=== PATIENT | female | born 1980 | race Caucasian/White ===

== ENCOUNTER 2022-05-01 21:14 | Emergency (ER) | payer SELFPAY ==
[2022-05-01 21:40] LABS: BILIRUBIN,URINE NEGATIVE (NEGATIVE); GLUCOSE, URINE (UA) NEGATIVE (NEGATIVE); KETONES,URINE (UA) NEGATIVE (NEGATIVE); LEUKOCYTE ESTERASE, URINE NEGATIVE (NEGATIVE); NITRITE,URINE NEGATIVE (NEGATIVE); OCCULT BLOOD,URINE LARGE (NEGATIVE); PROTEIN,URINE NEGATIVE (NEGATIVE); UROBILINOGEN,URINE 1 (NORMAL) E.U./dL (NORMAL)
[2022-05-01 21:43] LABS: CLARITY,URINE CLEAR (CLEAR); HCG UR QUAL NEGATIVE
[2022-05-01 21:46] LABS: BASOPHILS # (AUTO) 0.1 10^3/uL (0.0-0.1); BASOPHILS % (AUTO) 0.7 %; EOSINOPHILS # (AUTO) 0.3 10^3/uL (0.0-0.7); HCT - HEMATOCRIT 42.2 % (37.0-47.0); HGB - HEMOGLOBIN 14.2 g/dL (12.0-16.0); LYMPHOCYTES # (AUTO) 2.6 10^3/uL (1.5-3.5); LYMPHOCYTES % (AUTO) 32.6 %; MEAN CORPUSCULAR HEMOGLOBIN 30.3 pg (27.0-31.0); MEAN CORPUSCULAR HGB CONC 33.6 g/dL (32.0-36.0); MEAN CORPUSCULAR VOLUME 90.2 fL (81.0-99.0); MEAN PLATELET VOLUME 10.3 fL (7.9-10.8); MONOCYTES # (AUTO) 0.8 10^3/uL (0.0-1.0); MONOCYTES % (AUTO) 9.7 %; NEUTROPHILS # (AUTO) 4.3 10^3/uL (1.5-6.6); NEUTROPHILS % (AUTO) 52.8 %; PLT - PLATELET COUNT 256 10^3/uL (130-450); RED BLOOD COUNT 4.68 10^6/uL (4.20-5.40); RED CELL DISTRIBUTION WIDTH 11.8 % (12.0-15.0); WHITE BLOOD COUNT 8.1 x10^3/uL (4.8-10.8)
[2022-05-01 21:50] LABS: BACTERIA,URINE Few /HPF (None Seen); SQUAMOUS EPITHELIAL CELL,UR FEW Squamous (<= Few); WBC,URINE 0-3 /HPF (0-5)
[2022-05-01 22:23] LABS: ALBUMIN/GLOBULIN RATIO 1.4 (1.0-2.2); BILIRUBIN,TOTAL 0.9 mg/dL (0.2-1.0); CALCIUM 8.9 mg/dL (8.5-10.3); CREATININE 0.6 mg/dL (0.4-1.0); POTASSIUM 3.6 mmol/L (3.5-5.0); TOTAL PROTEIN 6.9 g/dL (6.7-8.2)
[2022-05-01] MEDS ORDERED: SODIUM CHLORIDE 0.9% 1,000 ML IV STA (22:45)
[2022-05-01] MEDS ORDERED: ONDANSETRON 4 MG/2 ML VIAL IVP STA (22:45)
[2022-05-01] MEDS ORDERED: KETOROLAC 30 MG/ML VIAL IVP STA (22:45)
[2022-05-01] MEDS ORDERED: HYDROmorphone 1 MG/ML CARPUJECT IVP STA (22:45)
[2022-05-01] MEDS ORDERED: iohexoL-300 100 ML VIAL ONE (23:29)
[2022-05-02] MEDS ORDERED: iohexoL-300 100 ML VIAL IVP ONE (00:07)
--- NOTE | 2022-05-02 00:14 | XRAY Report ---
PROCEDURE: Chest 1 View X-Ray INDICATIONS: chest pain TECHNIQUE: One view of the chest was acquired. COMPARISON: None. FINDINGS: Surgical changes and devices: None. Lungs and pleura: No pleural effusions or pneumothorax. Lungs are clear. Mediastinum: Mediastinal contours appear normal. Heart size is normal. Bones and chest wall: No suspicious bony lesions. Overlying soft tissues appear unremarkable. IMPRESSION: 1. No acute cardiopulmonary disease. Reviewed by: Earnest Perez MD on 05/02/2022 12:13 AM [facility] Approved by: Earnest Perez MD on 05/02/2022 12:13 AM [facility] Station ID: [id number]
--- NOTE | 2022-05-02 00:26 | CT Report ---
PROCEDURE: ABDOMEN/PELVIS W INDICATIONS: RUQ abd pain, no US available CONTRAST: 100 ML OMNI 300 TECHNIQUE: After the administration of intravenous contrast, 5 mm thick sections acquired from the diaphragms to the symphysis. 5 mm thick coronal and sagittal reformats were acquired. For radiation dose reducti on, the following was used: automated exposure control, adjustment of mA and/or kV according to shirley ent size. COMPARISON: None. FINDINGS: Image quality: Excellent. Lung bases:There is mild atelectasis and scarring in the lung bases. Heart: Heart is normal in size. ABDOMEN: Liver: No mass lesion. There is minimal fatty infiltration in the anterior left hepatic lobe. Gallbladder: The gallbladder demonstrates mild wall thickening without calcified gallstones or peric holecystic fluid. Biliary ducts: No biliary ductal dilatation. Pancreas: Unremarkable. Spleen: Normal in size. Adrenal Glands: No adrenal nodules. Kidneys and Ureters: No hydronephrosis. Stomach and Bowel: Stomach, small bowel loops, and colon are normal in caliber and wall thickness. T he appendix is normal in appearance. Peritoneum: No abnormal intraperitoneal fluid. No free air. Ventral Wall: No hernia. Abdominal Nodes: No retroperitoneal or mesenteric adenopathy by size criteria. Vessels: Aorta and inferior vena cava are normal in size. PELVIS: Pelvic Organs: There is an IUD within the lower uterine segment with apparent myometrial migration o f the transverse arms. Bladder: Unremarkable. Pelvic Nodes: No enlarged lymph nodes. Miscellaneous: No inguinal hernias. Bones: Visualized osseous structures demonstrate no suspicious lesions. IMPRESSION: 1. Mild gallbladder wall thickening without calcified gallstones or pericholecystic fluid. The findin gs are nonspecific but noncalcified gallstones in the early cholecystitis cannot be excluded. Recomme nd further evaluation with ultrasound when clinically feasible. 2. Apparent myometrial migration of patient's IUD in the lower uterine segment. Reviewed by: Earnest Perez MD on 05/02/2022 12:25 AM PST Approved by: Eranest Perez MD on 05/02/2022 12:25 AM PST Station ID: [id number]
[2022-05-02] MEDS ORDERED: ONDANSETRON ODT 4 MG Prepack 2 TL PRN (01:23)
[2022-05-02] MEDS ORDERED: HYDROcod/ACET 5/325 Prepack 4 PO STA (01:23)
--- NOTE | 2022-05-02 01:28 | ED Physician Documentation ---
History of Present Illness - Stated complaint Stated Complaint: RT UPPER ABD PX - Chief complaint Chief Complaint: Abd Pain - History obtained from History obtained from: Patient - Additonal information Additional information: The patient comes to the emergency department chief complaint of right upper quadrant abdominal pain and nausea for the last couple of days. She states that it seems like it has gotten worse today and so she finally decided to come in. The patient denies any history of this ever before. She states that her mother did have her gallbladder removed about 7 or 8 years ago, but that she does not personally have a gallbladder history herself. Patient has no history of ulcers that she knows of. 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 The patient states the pain just came up on its own and did not really seem to follow eating or anything else. She states she feels it both in her superiormost epigastric area and also, around her right ribs under her right breast. No fevers or chills. No jaundice. No cough or shortness of breath. No other complaints at this time. Review of Systems Constitutional: reports: Reviewed and negative Eyes: reports: Reviewed and negative Ears: reports: Reviewed and negative Nose: reports: Reviewed and negative Throat: reports: Reviewed and negative Cardiac: reports: Reviewed and negative Respiratory: reports: Reviewed and negative GI: reports: Abdominal Pain, Nausea, Vomiting : reports: Reviewed and negative Skin: reports: Reviewed and negative Musculoskeletal: reports: Reviewed and negative Neurologic: reports: Reviewed and negative Psychiatric: reports: Reviewed and negative Endocrine: reports: Reviewed and negative Immunocompromised: reports: Reviewed and negative PD PAST MEDICAL HISTORY - Past Medical History Past Medical History: Yes Endocrine/Autoimmune: Other Psych: Anxiety Other Past Medical History: Sulma - Past Surgical History Past Surgical History: Yes 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 HEENT: Tonsil/Adenoidectomy - Present Medications Home Medications: Ambulatory Orders Medication Instructions Recorded Confirmed FLUoxetine [PROzac] 10 mg PO DAILY 05/01/22 05/01/22 Levothyroxine Sodium [Synthroid] 400 mcg PO DAILY 05/01/22 05/01/22 Liothyronine [Cytomel] 15 mcg PO DAILY 05/01/22 05/01/22 Phentermine HCl 1 tab PO DAILY 05/01/22 05/01/22 - Allergies Allergies/Adverse Reactions: Allergies Allergy/AdvReac Type Severity Reaction Status Date / Time codeine AdvReac Emesis Verified 05/01/22 21:24 - Social History Does the pt smoke?: No Smoking Status: Never smoker Does the pt drink ETOH?: Yes ETOH Use: Wine Does the pt have substance abuse?: No - Immunizations Immunizations are current?: Yes - POLST Patient has POLST: No PD ED PE NORMAL - Vitals Vital signs reviewed: Yes - General General: Alert and oriented X 3, No acute distress, Well developed/nourished - HEENT HEENT: Atraumatic, PERRL, EOMI, Moist mucous membranes - Neck Neck: Supple, no meningeal sign - Cardiac Cardiac: RRR, No murmur, Strong equal pulses - Respiratory Respiratory: No respiratory distress, Clear bilaterally - Abdomen Abdomen: Soft, Non distended, Other (Moderate tenderness superiormost epigastrium without rebound or guarding. No right upper quadrant tenderness.) - Back Back: No CVA TTP - Derm Derm: Normal color, Warm and dry, No rash - Extremities Extremities: No deformity, No edema - Neuro Neuro: Alert and oriented X 3 - Psych Psych: Normal mood, Normal affect PD ED PE EXPANDED - Free text exam Free text exam: Chest wall tenderness right side, anteriorly, just inferior to breast. Results - Vitals Vitals: Vital Signs - 24 hr 05/01/22 05/01/22 05/01/22 21:20 22:53 23:15 Temperature 36.7 C 36.6 C Heart Rate 80 60 64 Respiratory 16 16 18 Rate Blood Pressure 130/88 H 116/60 111/91 H O2 Saturation 99 100 98 05/02/22 05/02/22 05/02/22 00:12 00:55 01:43 Temperature 36.9 C Heart Rate 73 62 67 Respiratory 16 20 16 Rate Blood Pressure 103/54 L 100/62 108/69 O2 Saturation 99 98 99 Oxygen O2 Source Room air - Labs Labs: Laboratory Tests 05/01/22 05/01/22 05/01/22 21:31 21:31 21:38 WBC 8.1 RBC 4.68 Hgb 14.2 Hct 42.2 MCV 90.2 MCH 30.3 MCHC 33.6 RDW 11.8 L Plt Count 256 MPV 10.3 Neut # (Auto) 4.3 Lymph # (Auto) 2.6 [place] # (Auto) 0.8 Eos # (Auto) 0.3 Baso # (Auto) 0.1 Absolute Nucleated RBC 0.00 Nucleated RBC % 0.0 Sodium Potassium Chloride Carbon Dioxide Anion Gap BUN Creatinine Estimated GFR (MDRD) Glucose Calcium Total Bilirubin AST ALT Alkaline Phosphatase Total Protein Albumin Globulin Albumin/Globulin Ratio Lipase Urine Color YELLOW Urine Clarity CLEAR Urine pH 6.0 Ur Specific [place] >=1.030 H Urine Protein NEGATIVE Urine Glucose (UA) NEGATIVE Urine Ketones NEGATIVE Urine Occult Blood LARGE H Urine Nitrite NEGATIVE Urine Bilirubin NEGATIVE Urine Urobilinogen 1 (NORMAL) Ur Leukocyte Esterase NEGATIVE Urine RBC 6-10 H Urine WBC 0-3 Ur Squamous Epith Cells FEW Squamous Urine Bacteria Few Ur Microscopic Review INDICATED Urine Culture Comments NOT INDICATED Urine HCG, Qual NEGATIVE 05/01/22 22:01 WBC RBC Hgb Hct MCV MCH MCHC RDW Plt Count MPV Neut # (Auto) Lymph # (Auto) [place] # (Auto) Eos # (Auto) Baso # (Auto) Absolute Nucleated RBC Nucleated RBC % Sodium 138 Potassium 3.6 Chloride 104 Carbon Dioxide 26 Anion Gap 8.0 BUN 11 Creatinine 0.6 Estimated GFR (MDRD) 111 Glucose 102 H Calcium 8.9 Total Bilirubin 0.9 AST 15 ALT 11 Alkaline Phosphatase 40 L Total Protein 6.9 Albumin 4.0 Globulin 2.9 Albumin/Globulin Ratio 1.4 Lipase 37 Urine Color Urine Clarity Urine pH Ur Specific [place] Urine Protein Urine Glucose (UA) Urine Ketones Urine Occult Blood Urine Nitrite Urine Bilirubin Urine Urobilinogen Ur Leukocyte Esterase Urine RBC Urine WBC Ur Squamous Epith Cells Urine Bacteria Ur Microscopic Review Urine Culture Comments Urine HCG, Qual - Rads (name of study) Chest x-ray Radiology: Final report received, See rad report (Negative) CT abdomen and pelvis Radiology: Final report received, See rad report (Slight thickening of the gallbladder wall without obvious stones. No dilatation of the gallbladder.) PD Medical Decision Making - ED course Complexity details: reviewed results, re-evaluated patient, considered differential, d/w patient ED course: The patient was treated symptomatically in the emergency department and I did work her up with CBC and ER abdominal panel and ultimately, a CT scan of the abdomen and pelvis. Each of the studies were ordered and reviewed by me. The CBC showed a normal white blood cell count. The ER abdominal panel showed no significant abnormalities of either the LFTs or the pancreatic enzymes. CT scan showed slight wall thickening of the gallbladder without obvious stones or other abnormalities. I discussed with the patient at this point in time that we do not have ultrasound overnight and will not have ultrasound for at least 8 hours. The patient's labs are normal and her CT scan does not show any concerning findings at this point, and we have discussed the option of having her PCP order an ultrasound as an outpatient or returning to the emergency department, should the pain begin to significantly worsen again. We have also discussed that if the ultrasound really does not show anything, then the next best test will likely be endoscopy. In the meantime, we have discussed symptomatic management at home and the usual indications for return. Departure - Departure Disposition: 01 Home, Self Care Clinical Impression: Abdominal pain Qualifiers: Abdominal location: right upper quadrant Qualified Code(s): R10.11 - Right upper quadrant pain Condition: Stable Instructions: ED Abdominal Pain Female Non-Specific Abdominal Pain Follow-Up: Stephen Acharya MD [Provider Admit Priv/Credential] - Angela Huitron ARNP [Credentialed Staff Provider] - Misa Hassan MD [Provider Admit Priv/Credential] - Comments: Your CT scan overall looks quite good. You have slight thickening of your gallbladder wall, but no evidence of stones, and your gallbladder is not dilated to indicate obstruction. It is still possible that you have a stone that is trying to pass and that this is causing your pain. It is also possible that you just passed a stone and that you are still having some residual pain. As we discussed, another possibility is inflammation or possibly an ulcer in the first part of your small intestine. Sometimes ultrasound is helpful in sorting out the possibility of a stone that is trying to pass through the tube that drains her gallbladder, but unfortunately, we do not have ultrasound here overnight on weekends. If your pain returns strongly, then ultrasound would be the next best test. If your pain gets very bad, you can return to the emergency department and we can try to get that done for you; the other option is to have your primary doctor order an ultrasound for you to have done as an outpatient here if your pain is not too bad. If ultrasound does not yield any further helpful information, then the next course of action would be to have an endoscopy done. This can look for any pathology in your stomach or small intestine that might be causing the pain, also. Please call as soon as possible to make your follow-up appointments. You may take the pain and nausea medication that you have been given here, as needed. Discharge Date/Time: 05/02/22 01:43
[2022-05-02 01:44] VITALS: BP 108/69
== END 2022-05-02 01:43 | disposition home or self-care (01) ==
LOC: ED 21:14
DX: R10.11 Right upper quadrant pain (principal)
CPT/HCPCS: 36415; 71045; 74177; 80053; 81001; 81025; 83690; 85025; 96374; 99284; J1170; Q9967; 81003; 87086

== ENCOUNTER 2023-12-27 19:33 | Emergency (ER) | payer BC, OTHER ==
[2023-12-27 20:22] LABS: BASOPHILS # (AUTO) 0.1 10^3/uL (0.0-0.1); BASOPHILS % (AUTO) 0.7 %; EOSINOPHILS # (AUTO) 0.2 10^3/uL (0.0-0.7); EOSINOPHILS % (AUTO) 1.8 %; HCT - HEMATOCRIT 39.7 % (37.0-47.0); HGB - HEMOGLOBIN 13.2 g/dL (12.0-16.0); LYMPHOCYTES % (AUTO) 30.1 %; MEAN CORPUSCULAR HEMOGLOBIN 30.2 pg (27.0-31.0); MEAN CORPUSCULAR HGB CONC 33.2 g/dL (32.0-36.0); MEAN CORPUSCULAR VOLUME 90.8 fL (81.0-99.0); MEAN PLATELET VOLUME 9.9 fL (7.9-10.8); MONOCYTES # (AUTO) 0.8 10^3/uL (0.0-1.0); NEUTROPHILS # (AUTO) 5.8 10^3/uL (1.5-6.6); PLT - PLATELET COUNT 304 10^3/uL (130-450); RED BLOOD COUNT 4.37 10^6/uL (4.20-5.40); RED CELL DISTRIBUTION WIDTH 12.1 % (12.0-15.0); WHITE BLOOD COUNT 9.8 x10^3/uL (4.8-10.8)
--- NOTE | 2023-12-27 20:35 | XRAY Report ---
PROCEDURE: Chest 1V INDICATIONS: Chest pain TECHNIQUE: One view of the chest was acquired. COMPARISON: 05/01/2022 FINDINGS: Surgical changes and devices: None. Lungs and pleura: Low lung volumes. No dense consolidation or pleural effusion Mediastinum: Heart size is at the upper lateral normal, unchanged Bones and chest wall: Unremarkable IMPRESSION: Low lung volumes. No dense airspace disease or pleural effusion. Limited single view radiograph. Reviewed by: Nathan Ya MD on 12/27/2023 8:34 PM PDT Approved by: Nathan Ya MD on 12/27/2023 8:34 PM PDT Station ID: [id number]
[2023-12-27 20:42] LABS: ALBUMIN 4.3 g/dL (3.2-5.5); ALBUMIN/GLOBULIN RATIO 1.8 (1.0-2.2); BILIRUBIN,TOTAL 0.5 mg/dL (0.2-1.0); CALCIUM 9.5 mg/dL (8.5-10.3); CREATININE 0.6 mg/dL (0.6-1.3); MAGNESIUM 1.6 mg/dL (1.7-2.3); POTASSIUM 3.4 mmol/L (3.5-4.5); TOTAL PROTEIN 6.7 g/dL (6.4-8.9)
[2023-12-27 20:54] LABS: THYROID STIMULATING HORMONE 4.04 uIU/mL (0.34-5.60)
--- NOTE | 2023-12-27 20:57 | ED Physician Documentation ---
PD HPI CHEST PAIN - Stated complaint Stated Complaint: HEART PALP - Chief complaint Chief Complaint: Cardiac - History obtained from History obtained from: Patient - Additional information Additional information: She ran out of her fluoxetine thyroid supplementation about a week and a half ago. Starting about a week ago she started to get palpitations like heart fluttering followed by presyncope. No chest pain. She has had these on and off before but it has been worse over this week. No syncope. 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 HEENT: Tonsil/Adenoidectomy - Present Medications Home Medications: Ambulatory Orders Medication Instructions Recorded Confirmed FLUoxetine [PROzac] 10 mg PO DAILY 05/01/22 05/01/22 Levothyroxine Sodium [Synthroid] 400 mcg PO DAILY 05/01/22 05/01/22 Liothyronine [Cytomel] 15 mcg PO DAILY 05/01/22 05/01/22 Phentermine HCl 1 tab PO DAILY 05/01/22 05/01/22 FLUoxetine [PROzac] 10 mg PO DAILY #30 cap 12/27/23 Liothyronine Sodium [Cytomel] 4 tab PO DAILY #120 tablet 12/27/23 - Allergies Allergies/Adverse Reactions: Allergies Allergy/AdvReac Type Severity Reaction Status Date / Time codeine AdvReac Emesis Verified 05/01/22 21:24 - Social History Does the pt smoke?: No Smoking Status: Never smoker Does the pt drink ETOH?: Yes Does the pt have substance abuse?: No - Immunizations Immunizations are current?: Yes - POLST Patient has POLST: No PD ED PE NORMAL - Vitals Vital signs reviewed: Yes - General General: Alert and oriented X 3, No acute distress - Cardiac Cardiac: RRR, No murmur - Respiratory Respiratory: No respiratory distress, Clear bilaterally - Abdomen Abdomen: Non tender Results - Vitals Vitals: Vital Signs - 24 hr 12/27/23 12/27/23 19:51 20:51 Temperature 36.5 C Heart Rate 55 L 68 Respiratory 17 16 Rate Blood Pressure 147/86 H 120/68 O2 Saturation 96 100 Oxygen O2 Source Room air - EKG (time done) 2002 EKG releavant findings:: EKG personally interpreted by author of this note. Relevant findings are: Rate: Rate (enter#) (58) Rhythm: NSR [place]: Normal Intervals: Normal OR QRS: Normal Ischemia: Normal ST segments - Labs Labs: Laboratory Tests 12/27/23 12/27/23 12/27/23 20:16 20:16 20:16 WBC 9.8 RBC 4.37 Hgb 13.2 Hct 39.7 MCV 90.8 MCH 30.2 MCHC 33.2 RDW 12.1 Plt Count 304 MPV 9.9 Neut # (Auto) 5.8 Lymph # (Auto) 3.0 [place] # (Auto) 0.8 Eos # (Auto) 0.2 Baso # (Auto) 0.1 Absolute Nucleated RBC 0.00 Nucleated RBC % 0.0 Sodium 136 Potassium 3.4 L Chloride 105 Carbon Dioxide 23 Anion Gap 8.0 BUN 10 Creatinine 0.6 Estimated GFR (MDRD) 110 Glucose 102 Calcium 9.5 Magnesium 1.6 L Total Bilirubin 0.5 AST 14 ALT 13 Alkaline Phosphatase 36 L Troponin I High Sens < 2.3 L Total Protein 6.7 Albumin 4.3 Globulin 2.4 Albumin/Globulin Ratio 1.8 Lipase 30 TSH 4.04 PD Medical Decision Making - ED course ED course: She presents with symptomatic palpitations in the setting of potential fluoxetine withdrawal. She was administered fluoxetine here and a small dose of oral potassium bicarbonate for her potassium which was low at 3.4. Her tropo rochelle was negative and CBC unremarkable. She had no ectopy or arrhythmias while here and was asymptomatic in the department. She was offered more prolonged observation but was preferring to go home. Departure - Departure Disposition: 01 Home, Self Care Clinical Impression: Palpitations Condition: Good Record reviewed to determine appropriate education?: Yes Instructions: ED Palpitations Prescriptions: Liothyronine Sodium [Cytomel] 4 tab PO DAILY #120 tablet FLUoxetine [PROzac] 10 mg PO DAILY #30 cap Comments: I sent your prescriptions electronically to the [facility] in [place]. Follow-up with your doctor for consideration for Holter patch or Zio patch if symptoms are persistent. Return for new or worsening symptoms. Forms: PCP List
[2023-12-27] MEDS: FLUoxetine 10 MG CAPSULE PO STA (21:20)
[2023-12-27] MEDS: POTASSIUM BICARB 25 MEQ TABLET PO STA (21:20)
[2023-12-27 22:09] VITALS: BP 122/62; O2SAT 98
== END 2023-12-27 22:05 | disposition home or self-care (01) ==
LOC: ED 19:33
DX: R00.2 Palpitations (principal); T43.226A Underdosing of selective serotonin reuptake inhibitors, initial encounter; Z91.138 Patient's unintentional underdosing of medication regimen for other reason
CPT/HCPCS: 36415; 71045; 80048; 80053; 83690; 83735; 84443; 84484; 85025; 93005; 99284; A9270